=== PATIENT | male | born 1995 | race Two or more races ===

== ENCOUNTER 2024-11-25 15:09 | Emergency (ER) | payer MEDICAID ==
[~2024-11-25] VITALS: Ht 182.9 cm; Wt 136.4 kg
[2024-11-25 15:37] VITALS: BP 163/111; TEMP 98.5
[2024-11-25 15:38] VITALS: PULSE 116; RESP 17; O2SAT 97
[2024-11-25 16:15] LABS: Urine Bacteria None Seen /hpf (None Seen)
[2024-11-25 16:47] LABS: Urine Blood 1+ /uL (Negative); Urine Budding Yeast MODERATE /hpf (None Seen); Urine Clarity Turbid (Clear); Urine Color Light-Yellow (Yellow); Urine Mucus FEW (None Seen); Urine Protein, UAD 2+ (Negative); Urine Specific Gravity 1.015 (1.001-1.035); Urine Squamous Epithelial Cell None Seen /hpf (<5); Urine Urobilinogen Normal (Negative); Urine WBC 181 /HPF (0-3)
[2024-11-25] MEDS ORDERED: NITR50CA24 PO (17:05)
[2024-11-25] MEDS ORDERED: DOXY-286 PO (17:05)
--- NOTE | 2024-11-25 17:06 | ED.PDOC ---
General HPI Comments 29-year-old male presents with a chief complaint of penile discharge for two weeks. Was seen at urgent care for the same complaints and was prescribed antibiotics with some improvement. Reports penile discharge resolved while he was taking antibiotics but recurred three days after the course was completed. Color: white Denies previous STDs Denies fevers chills night sweats Denies pelvic pain Denies nausea vomiting diarrhea Denies dysuria urgency frequency Denies history of UTI Denies blood in the urine or semen Denies recent instruments/toys and urethra Denies current tobacco use Denies family history of prostate issues Chief Complaint: Penile Discharge Time Seen by MD: 15:30 Primary Care Provider: joana Rizvi notes: Nurses Notes, Medications, Allergies Allergies: Coded Allergies: NO KNOWN ALLERGIES (Unverified , 11/25/24) Home Meds Active Scripts Nitrofurantoin (Macrodantin) 50 Mg Cap, 1 CAP PO BID for 7 Days, #14 CAP 0 Refills Prov:GERMÁN TATE QUAIL FARMER 11/25/24 Doxycycline Hyclate (DOXYCYCLINE HYCLATE) 100 Mg Tab, 1 TAB PO BID for 7 Days, #14 TAB 0 Refills Prov:GERMÁN TATE QUAIL FARMER 11/25/24 Information Source: Patient Mode of Arrival: Ambulatory Family History Family History: Reviewed,noncontributory to illness Social History Smoker: Non-Smoker Alcohol: Denies ETOH Use Drugs: Denies Drug Use All Other Systems: Reviewed and Negative (Per HPI) Physical Exam General Appearance: No Apparent Distress, Normal HEENT: Normal ENT Inspection, Pharynx Normal, TMs Normal Neck: Full Range of Motion, Non-Tender, Normal, Normal Inspection Respiratory: Chest Non-Tender, Lungs Clear, No Accessory Muscle Use, No Respiratory Distress, Normal Breath Sounds Cardiovascular: No Murmur, No Gallop, Regular Rate/Rhythm Breast Exam: Deferred Gastrointestinal: No Organomegaly, Non Tender, No Pulsatile Mass, Normal Bowel Sounds, Soft Genitalia: Penis (mild white dc. Erythematous to the penile shaft. Testicles appear normal. Nontender to palpation. no high riding testi. ) Pelvic: Deferred Rectal: Deferred Extremities: No calf tenderness, Normal capillary refill, Normal inspection, Normal range of motion, Non-tender, No pedal edema Musculoskeletal : Apperance: Normal Neurologic: Alert, No Motor Deficits, Normal Affect, Normal Mood, No Sensory Deficits Cerebellar Function: Normal Reflexes: Normal Skin: Dry, Normal Color, Warm Lymphatic: No Adenopathy Was a procedure done? Was a procedure done?: No Differential Diagnosis Kidney stone (Female): Other Penile/Scrotal: Epidiymitis, Prostatitis, STD, UTI, Other X-Ray, Labs, Meds, VS Vital Signs Date Time Temp Pulse Resp B/P (MAP) Pulse Ox O2 Delivery O2 Flow Rate FiO2 11/25/24 15:38 116 17 97 Room Air 0 11/25/24 15:37 98.5 116 17 163/111 (128) 97 98.5 11/25/24 15:22 98.5 116 17 163/111 (128) 97 Lab Test 11/25/24 15:22 Range/Units Urine Color Light-yellow Yellow Urine Clarity Turbid H Clear Urine pH 6.0 5.0-9.0 Urine Specific [place] 1.015 1.001-1.035 Urine Protein 2+ H Negative Urine Ketones Trace Negative Urine Blood 1+ H Negative /uL Urine Nitrite Negative Negative Urine Bilirubin Negative Negative Urine Urobilinogen Normal Negative mg/dL Urine Leukocyte Esterase 3+ Negative /uL Urine RBC 6 0 - 3 /hpf Urine Microscopic WBC 181 H 0-3 /HPF Urine Squamous Epithelial Cells None seen <5 /hpf Urine Bacteria None seen None Seen /hpf Urine Mucus Few None Seen Urine Yeast (Budding) Moderate None Seen /hpf Urine Glucose Normal Normal mg/dL Current Medications Medications (Trade) Dose Ordered Sig/Мария Route Start Time Stop Time Status Last Admin Ceftriaxone Sodium (Rocephin) 1,000 mg ONCE ONCE IM 11/25/24 17:00 11/25/24 17:02 DC 11/25/24 17:09 X-Ray, Labs, Meds, VS Comment No e/o epididymo-orchitis on exam and low suspicion for rectal abscess, prostatitis, other deep space infection Non toxic. Not ill appearing. No CVA tenderness. No ab pain. Unlikely Infected Urolithiasis, AAA, cholecystitis, pancreatitis, SBO, appendicitis, or other acute abdomen. Workup: UA, Urine G/C Rx: Macrobid for UTI and based on shared decision making pt agreed to empiric tx for G/C Disposition: Discharge home. SRP discussed. Advise follow up with primary care provider within 24-72 hours. Time of 1ST Reevaluation: 17:00 Reevaluation 1ST: Improved Patient Education/Counseling: Diagnosis, Treatment Family Education/Counseling: Diagnosis, Treatment Departure 1 Departure Time of Disposition: 17:06 Impression: Primary Impression: UTI (urinary tract infection) Qualified Codes: N30.00 - Acute cystitis without hematuria Additional Impression: Penile discharge Disposition: HOME / SELF CARE / HOMELESS e-Prescriptions Nitrofurantoin (Macrodantin) 50 Mg Cap 1 CAP PO BID for 7 Days, #14 CAP 0 Refills Prov: GERMÁN TATE NP 11/25/24 Doxycycline Hyclate (DOXYCYCLINE HYCLATE) 100 Mg Tab 1 TAB PO BID for 7 Days, #14 TAB 0 Refills Prov: GERMÁN TATE NP 11/25/24 Critical Care Note Critical Care Time?: No Stability Stability form required: No Heart Score Heart Score: Heart Score Response (Comments) Value History N/A 0 EKG N/A 0 Age N/A 0 Risk Factors N/A 0 Troponin N/A 0 Total 0 GERMÁN TATE NP Nov 25, 2024 17:06
[2024-11-25] MEDS: cefTRIAXone SOD 1,000 MG VL IM ONE (17:09)
== END 2024-11-25 17:16 | disposition home or self-care (01) ==
LOC: ER 15:09
DX: N39.0 Urinary tract infection, site not specified (principal); R36.9 Urethral discharge, unspecified; Z79.899 Other long term (current) drug therapy
CPT/HCPCS: 81001; 96372; 99283; J0696

== ENCOUNTER 2024-11-27 12:13 | Emergency (ER) | payer MEDICAID ==
[~2024-11-27] VITALS: Ht 172.7 cm; Wt 135.6 kg
[~2024-11-27 12:13] MED LIST: DOXY-286 PO; NITR50CA24 PO
[2024-11-27 12:38] LABS: Urine Bacteria None Seen /hpf (None Seen)
[2024-11-27 12:54] LABS: Urine Blood Negative /uL (Negative); Urine Clarity Clear (Clear); Urine Color Light-Yellow (Yellow); Urine Protein, UAD Negative (Negative); Urine Specific Gravity 1.005 (1.001-1.035); Urine Sperm PRESENT /hpf (None Seen); Urine Squamous Epithelial Cell FEW /hpf (<5); Urine Urobilinogen Normal (Negative); Urine WBC 9 /HPF (0-3); Urine pH 5.5 (5.0-9.0)
--- NOTE | 2024-11-27 12:59 | ED.PDOC ---
General HPI Comments 29 year old male presents to the ED with chief complaint of flank pain. Patient reports that he has been experiencing bilateral flank pain for the past 2 days, worse over time. Patient relays that he was seen in the ED 2 days ago as well and was diagnosed with a severe UTI, being prescribed Doxycycline and Macrobid. Patient denies any dysuria, hematuria, dizziness, abdominal pain, fever, or chills. Chief Complaint: Flank Pain Time Seen by MD: 12:58 Primary Care Provider: VICTORINA Rizvi notes: Nurses Notes, Medications, Allergies Allergies: Coded Allergies: NO KNOWN ALLERGIES (Unverified , 11/25/24) Home Meds Active Scripts Nitrofurantoin (Macrodantin) 50 Mg Cap, 1 CAP PO BID for 7 Days, #14 CAP 0 Refills Prov:GERMÁN TATE CARGO WORKER 11/25/24 Doxycycline Hyclate (DOXYCYCLINE HYCLATE) 100 Mg Tab, 1 TAB PO BID for 7 Days, #14 TAB 0 Refills Prov:GERMÁN TATE CARGO WORKER 11/25/24 Information Source: Patient Mode of Arrival: Ambulatory Severity: Moderate Inability to void: None Timing: Hours Duration: Since onset Prehospital treatment: None Onset: Spontaneous History of: UTI Location: (R) Flank, (L)Flank Penile discharge: None Modifying factors: None associated signs and symptoms: Flank Pain Past Medical History PAST MEDICAL HISTORY: UTI'S Surgical History: Denies all surgeries Family History Family History: Reviewed,noncontributory to illness Social History Smoker: Non-Smoker Alcohol: Denies ETOH Use Drugs: Denies Drug Use Lives In: Home Constitutional: denies: chills, diaphoresis, fatigue, fever, malaise, sweats, weakness, others EENTM: denies: blurred vision, double vision, ear bleeding, ear discharge, ear drainage, ear pain, ear ringing, eye pain, eye redness, hearing loss, mouth pain, mouth swelling, nasal discharge, nose bleeding, nose congestion, nose pain, photophobia, tearing, throat pain, throat swelling, voice changes, others Respiratory: denies: cough, hemoptysis, orthopnea, SOB at rest, shortness of breath, SOB with excertion, stridor, wheezing, others Cardiovascular: denies: chest pain, dizzy spells, diaphoresis, Dyspnea on exertion, edema, irregular heart beat, left arm pain, lightheadedness, palpitations, PND, syncope, others Gastrointestinal: denies: abdomen distended, abdominal pain, blood streaked bowels, constipated, diarrhea, dysphagia, difficulty swallowing, hematemesis, melena, nausea, poor appetite, poor fluid intake, rectal bleeding, rectal pain, vomiting, others Genitourinary: reports: flank pain; denies: burning, dysuria, frequency, hematuria, incontinence, penile discharge, penile sore, pain, testicle pain, testicle swelling, urgency, others Neurological: denies: dizziness, fainting, headache, left sided numbness, left sided weakness, numbness, paresthesia, pre-existing deficit, right sided numbness, right sided weakness, seizure, speech problems, tingling, tremors, weakness, others Musculoskeletal: denies: back pain, gout, joint pain, joint swelling, muscle pain, muscle stiffness, neck pain, others Integumetry: denies: bruises, change in color, change in hair/nails, dryness, laceration, lesions, lumps, rash, wounds, others Allergic/Immunocompromised: denies: Difficulty Healing, Frequent Infections, Hives, Itching, others Hematologic/Lymphatic: denies: anemia, blood clots, easy bleeding, easy bruising, swollen glands, others Endocrine: denies: excessive hunger, excessive sweating, excessive thirst, excessive urination, flushing, intolerance to cold, intolerance to heat, unexplained weight gain, unexplained weight loss, others Psychiatric: denies: anxiety, bipolar disorder, depression, hopeless, panic disorder, schizophrenia, sleepless, suicidal, others All Other Systems: Reviewed and Negative Physical Exam General Appearance: Moderate Distress, Normal HEENT: Normal ENT Inspection, PERRL/EOMI Neck: Full Range of Motion, Non-Tender, Normal, Normal Inspection Respiratory: Chest Non-Tender, Lungs Clear, No Accessory Muscle Use, No Respiratory Distress, Normal Breath Sounds Cardiovascular: No Edema, No JVD, No Murmur, No Gallop, Normal Peripheral Pulses, Regular Rate/Rhythm Breast Exam: Deferred Gastrointestinal: No Organomegaly, Non Tender, No Pulsatile Mass, Normal Bowel Sounds, Soft Genitalia: Deferred Pelvic: Deferred Rectal: Deferred Extremities: No calf tenderness, Normal capillary refill, Normal inspection, Normal range of motion, Non-tender, No pedal edema Musculoskeletal : Apperance: Normal Neurologic: Alert, recreational vehicle repairer II-XII nml as Tested, No Motor Deficits, Normal Affect, Normal Mood, No Sensory Deficits Cerebellar Function: Normal Reflexes: Normal Skin: Dry, Normal Color, Warm Peripheral Pulses: 3+ Radial (R), 3+ Radial (L) Lymphatic: No Adenopathy Was a procedure done? Was a procedure done?: No Differential Diagnosis Kidney stone (Female): Musculoskeletal pain, Urinary obstruction, Urolithiasis X-Ray, Labs, Meds, VS Vital Signs Date Time Temp Pulse Resp B/P (MAP) Pulse Ox O2 Delivery O2 Flow Rate FiO2 11/27/24 13:15 150/98 11/27/24 12:27 98.2 101 18 169/111 (130) 98 167/104 (125) Lab Test 11/27/24 12:25 Range/Units Urine Color Light-yellow Yellow Urine Clarity Clear Clear Urine pH 5.5 5.0-9.0 Urine Specific [place] 1.005 1.001-1.035 Urine Protein Negative Negative Urine Ketones Negative Negative Urine Blood Negative Negative /uL Urine Nitrite Negative Negative Urine Bilirubin Negative Negative Urine Urobilinogen Normal Negative mg/dL Urine Leukocyte Esterase 1+ Negative /uL Urine RBC 2 0 - 3 /hpf Urine Microscopic WBC 9 H 0-3 /HPF Urine Squamous Epithelial Cells Few <5 /hpf Urine Bacteria None seen None Seen /hpf Urine Sperm Present None Seen /hpf Urine Glucose Normal Normal mg/dL Current Medications Medications (Trade) Dose Ordered Sig/Мария Route Start Time Stop Time Status Last Admin Clonidine HCl (Catapres Tablet) 0.1 mg ONCE ONCE PO 11/27/24 13:15 11/27/24 13:16 DC 11/27/24 13:15 Patient alert. Complaining of flank pain. Seen here recently for which he was given antibiotics for possible urinary tract infection. Vitals stable. Answering all questions. Blood pressure elevated. Was given clonidine He does not take care himself. He was told to take his Macrobid. Explained to the patient. Was told to follow up with his primary care physician. Was told to back if there is any problem. L-Spine XR: FINDINGS: The lumbar vertebral alignment is normal. The intervertebral disc spaces are well-maintained. No significant facet arthropathy is noted. No acute fracture, vertebral compression deformity or aggressive osseous lesions. The paravertebral soft tissues are grossly unremarkable. IMPRESSION: No acute fracture. Time of 1ST Reevaluation: 13:58 Reevaluation 1ST: Improved Patient Education/Counseling: Diagnosis, Treatment Family Education/Counseling: No Family Present Departure 1 Departure Time of Disposition: 13:12 Impression: Primary Impression: HTN (hypertension) Qualified Codes: I10 - Essential (primary) hypertension Additional Impression: UTI (urinary tract infection) Qualified Codes: N30.00 - Acute cystitis without hematuria Disposition: HOME / SELF CARE / HOMELESS Condition: Good e-Prescriptions Sulfamethoxazole W/Trimethopri (Bactrim Ds Tablet) 1 Tab Tb 1 TAB PO BID for 5 Days, #10 TAB Prov: JACKIE RIVERA MD 11/27/24 Discharged With: Self Critical Care Note Critical Care Time?: No Stability Stability form required: No Heart Score Heart Score: Heart Score Response (Comments) Value History N/A 0 EKG N/A 0 Age N/A 0 Risk Factors N/A 0 Troponin N/A 0 Total 0 I personally scribed for JACKIE RIVERA MD ([email or web address]) on 11/27/24 at 12:59. Electronically submitted by Sonido Hamlin ([email or web address]). I personally scribed for JACKIE RIVERA MD ([email or web address]) on 11/27/24 at 13:53. Electronically submitted by Sonido Hamlin ([email or web address]). JACKIE RIVERA MD Nov 27, 2024 12:59
[2024-11-27] MEDS: cloNIDine HCL 0.1 MG TAB PO ONE (13:15)
--- NOTE | 2024-11-27 13:46 | DVH ---
INDICATION: pain COMPARISON: None TECHNIQUE: 2 views of the lumbar spine were obtained. FINDINGS: The lumbar vertebral alignment is normal. The intervertebral disc spaces are well-maintained. No significant facet arthropathy is noted. No acute fracture, vertebral compression deformity or aggressive osseous lesions. The paravertebral soft tissues are grossly unremarkable. IMPRESSION: No acute fracture.
[2024-11-27] MEDS ORDERED: BACDST PO (15:31)
[2024-11-27 16:29] VITALS: BP 146/75; PULSE 99; RESP 20; TEMP 98.4; O2SAT 99
== END 2024-11-27 16:53 | disposition home or self-care (01) ==
LOC: ER 12:13
DX: N39.0 Urinary tract infection, site not specified (principal); I10 Essential (primary) hypertension; Z79.899 Other long term (current) drug therapy
CPT/HCPCS: 72100; 81001